=== PATIENT | female | born 1980 | race Caucasian/White ===

== ENCOUNTER 2020-08-10 19:37 | Emergency (ER) | payer OTHER ==
[~2020-08-10] VITALS: Ht 157.5 cm; Wt 56.7 kg
[2020-08-10 19:48] VITALS: BP 158/104
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
[2020-08-10] MEDS: NACL 0.9% 1,000 ML IV ONE (20:49)
[2020-08-10] MEDS: KETOROLAC 30 MG/ML VIAL IVP ONE (20:50)
[2020-08-10] MEDS: ONDANSETRON 4 MG/2 ML VIAL IVP ONE (20:50)
[2020-08-10 23:56] VITALS: BP 149/98
--- NOTE | 2020-08-10 23:57 | NUR ---
Patient discharged with v/s stable. Written and verbal after care instructions given and explained. Patient alert, oriented and verbalized understanding of instructions. Ambulatory with steady gait. All questions addressed prior to discharge. ID band removed. Patient advised to follow up with PMD. Rx of VALIUM AND NAPROSYN given. Patient educated on indication of medication including possible reaction and side effects. Opportunity to ask questions provided and answered.
== END 2020-08-10 23:56 | disposition home or self-care (01) ==
LOC: MED 19:37
DX: S16.1XXA Strain of muscle, fascia and tendon at neck level, initial encounter (principal); R51.9 Headache, unspecified; J45.909 Unspecified asthma, uncomplicated; V89.2XXA Person injured in unspecified motor-vehicle accident, traffic, initial encounter; Y93.89 Activity, other specified; Y92.89 Other specified places as the place of occurrence of the external cause; Y99.8 Other external cause status
CPT/HCPCS: 70450; 72125; 81025; 96361; 96374; 96375; 99285; J1885; J2405; J7030